=== PATIENT | female | born 1990 | race American Indian/Alaskan Native ===

== ENCOUNTER 2019-07-28 20:02 | Emergency (ER) | payer SELFPAY ==
--- NOTE | 2019-07-28 20:47 | Emergency Department Report ---
Blank Doc - Documentation Documentation: 28-year-old female that presents with left heel puncture wound with pain and s welling. This initial assessment/diagnostic orders/clinical plan/treatment(s) is/are subject to change based on patient's health status, clinical progression and re- assessment by fellow clinical providers in the ED. Further treatment and workup at subsequent clinical providers discretion. Patient/guardians urged not to elope from the ED as their condition may be serious if not clinically assessed and managed. Initial orders include: 1- Patient sent to [facility] for further evaluation and treatment 2- xrays-r/o foreign body
--- NOTE | 2019-07-28 22:33 | Emergency Department Report ---
ED General Adult HPI - General Chief complaint: Extremity Injury, Lower Stated complaint: INFECTION ON LEFT FOOT Time Seen by Provider: 07/28/19 22:15 Source: patient Mode of arrival: Ambulatory Limitations: No Limitations - History of Present Illness Initial comments: Patient is a 28-year-old female that presents emergency room with complaints of left heel/foot pain times one month. She states she's had a callus on the heel of her left foot for approximately one however the heel started hurting yesterday. Patient states that she squeezed the callus and pus came out. Patient denies fever and chills. Patient states her tetanus is up-to-date. Patient states the pain as a 1 out of 10. Patient states the pain is better with rest and worse with palpation and movement and walking. Patient states her last menstrual period was 06/25/2019. Patient states she is on control. Patient denies chance of . Patient states she is not breast feeding. Patient states she had a baby 6 months ago. Patient denies chest pain. Patient denies any other physical complaints. -: Sudden Location: left, lower extremity (left heel.) Radiation: non-radiation Severity scale (0 -10): 1 Quality: aching Consistency: intermittent Improves with: rest Worsens with: movement Associated Symptoms: denies: confusion, chest pain, diaphoresis, fever/chills, headaches, loss of appetite, malaise, nausea/vomiting, rash, seizure, shortness of breath, syncope, weakness Treatments Prior to Arrival: NSAID - Related Data Previous Rx's Medication Instructions Recorded Last Taken Type Sulfamethoxazole/Trimethoprim 1 each PO BID 10 Days #20 tablet 07/28/19 Unknown Rx [Bactrim DS TAB] Allergies Allergy/AdvReac Type Severity Reaction Status Date / Time No Known Allergies Allergy Unverified 07/28/19 20:48 ED Review of Systems ROS: Stated complaint: INFECTION ON LEFT FOOT Other details as noted in HPI Comment: All other systems reviewed and negative ED Past Medical Hx - Past Medical History Previous Medical History?: No - Surgical History Past Surgical History?: No - Family History Family history: no significant - Social History Smoking Status: Never Smoker Substance Use Type: None - Medications Home Medications: Home Medications Medication Instructions Recorded Confirmed Last Taken Type Sulfamethoxazole/Trimethoprim 1 each PO BID 10 Days #20 tablet 07/28/19 Unknown Rx [Bactrim DS TAB] ED Physical Exam - General Limitations: No Limitations General appearance: alert, in no apparent distress - Head Head exam: Present: atraumatic, normocephalic - Eye Eye exam: Present: normal appearance - ENT ENT exam: Present: mucous membranes moist - Neck Neck exam: Present: normal inspection - Respiratory Respiratory exam: Present: normal lung sounds bilaterally. Absent: respiratory distress, wheezes, rales - Cardiovascular Cardiovascular Exam: Present: regular rate, normal rhythm. Absent: systolic murmur, diastolic murmur, rubs, gallop - GI/Abdominal GI/Abdominal exam: Present: soft, normal bowel sounds. Absent: distended, tenderness, guarding - Rectal Rectal exam: Present: deferred - Extremities Exam Extremities exam: Present: normal inspection, other (right heel tenderness. Slight redness) - Back Exam Back exam: Present: normal inspection - Neurological Exam Neurological exam: Present: alert, oriented X3 - Psychiatric Psychiatric exam: Present: normal affect, normal mood - Skin Skin exam: Present: warm, dry, intact, normal color, erythema (to the right heel . Callus noted). Absent: rash ED Course Vital Signs 07/28/19 07/28/19 20:08 22:30 Temperature 98.6 F 98.3 F Pulse Rate 111 H 87 Respiratory 20 15 Rate Blood Pressure 146/83 Blood Pressure 128/76 [Right] O2 Sat by Pulse 97 100 Oximetry - Reevaluation(s) Reevaluation #1: I discussed plan of care with patient. I Discussed clinical findings with patient. I Discussed all results with patient Patient agrees with plan of care. Patient will be given antibiotics and referred to a title clerk automobile. I discussed discharge instructions with patient. Patient voiced understanding of discharge instructions. 07/28/19 22:47 07/28/19 22:55 ED Medical Decision Making - Radiology Data Radiology results: report reviewed, image reviewed XR LEFT FOOT 3 VIEWS INDICATION / CLINICAL INFORMATION: pain r/o foreign body COMPARISON: None available. FINDINGS: BONES / JOINT(S): No acute displaced fracture or subluxation. No significant arthritis. SOFT TISSUES: Mild diffuse soft tissue swelling of the foot. There is a 6 mm radiopaque foreign object projecting in the soft tissues of the heel just deep to the skin surface. Additionally, there is a 4 mm radiopaque density projecting along the tip of the great toe, di fficult to discern if this is internal or external to the skin surface. ADDITIONAL FINDINGS: None. Impression: 1. No acute displaced fracture or dislocation. 2. Radiopaque foreign object in the soft tissues of the heel, and possible additional radiopaque foreign object along the tip of the great toe. - Medical Decision Making Patient is a 28-year-old female up since emergency room with complaints of left heel pain 2 days. Patient had a callus on her foot for 1 month. Patient also complained of pus coming out approximately 2 days ago after squeezing the callus on her left heel. Patient given Bactrim prescription. Patient will be referred to a title clerk automobile. X-ray was done and shows a skin foreign body in the foot. - Differential Diagnosis heel pain, callus, and infected callus, cellulitis Critical care attestation.: If time is entered above; I have spent that time in minutes in the direct care of this critically ill patient, excluding procedure time. ED Disposition Clinical Impression: Foot callus, Cellulitis of heel, left, Foreign body (FB) in soft tissue Heel pain Qualifiers: Laterality: left Qualified Code(s): M79.672 - Pain in left foot Disposition: DC-01 TO HOME OR SELFCARE Is pt being admited?: No Does the pt Need Aspirin: No Condition: Stable Instructions: Soft Tissue Foreign Body (ED), Cellulitis (ED) Additional Instructions: Patient to follow up with primary care in 2-3 days. Patient to follow up with p odiatrist in 2-3 day. Patient to rest. Patient to take Tylenol or ibuprofen when necessary for pain. Patient take meds as directed. Patient to increase water. Patient to return to the ER if condition worsens, changes or new symptoms arise. Patient to apply warm compress to area 6-7 times a day and 20 minutes each time. Prescriptions: Sulfamethoxazole/Trimethoprim [Bactrim DS TAB] 1 each PO BID 10 Days #20 tablet Referrals: ISABEL PULIDO DPM [Staff Physician] - 2-3 Days Time of Disposition: 22:51
--- NOTE | 2019-07-28 22:40 | XRay Report ---
XR LEFT FOOT 3 VIEWS INDICATION / CLINICAL INFORMATION: pain r/o foreign body COMPARISON: None available. FINDINGS: BONES / JOINT(S): No acute displaced fracture or subluxation. No significant arthritis. SOFT TISSUES: Mild diffuse soft tissue swelling of the foot. There is a 6 mm radiopaque foreign objec t projecting in the soft tissues of the heel just deep to the skin surface. Additionally, there is a 4 mm radiopaque density projecting along the tip of the great toe, difficult to discern if this is in ternal or external to the skin surface. ADDITIONAL FINDINGS: None. Impression: 1. No acute displaced fracture or dislocation. 2. Radiopaque foreign object in the soft tissues of the heel, and possible additional radiopaque fore ign object along the tip of the great toe. Signer Name: Ale Berman MD Signed: 07/28/2019 10:35 PM Workstation Name: [id number]
[2019-07-28 23:54] VITALS: BP 128/76
== END 2019-07-28 23:15 | disposition home or self-care (01) ==
LOC: ED 20:02
DX: L84 Corns and callosities (principal); L03.116 Cellulitis of left lower limb; M79.5 Residual foreign body in soft tissue; Z79.899 Other long term (current) drug therapy